=== PATIENT | female | born 1985 | race Two or more races ===

== ENCOUNTER 2019-08-06 19:01 | Emergency (ER) | payer OTHER ==
[~2019-08-06] VITALS: Ht 165.1 cm; Wt 52.2 kg
[2019-08-06 19:16] VITALS: BP 134/84
--- NOTE | 2019-08-06 19:27 | NUR ---
CALLED FOR COVID
== END 2019-08-06 19:46 | disposition home or self-care (01) ==
LOC: ER 19:07
DX: Z03.818 Encounter for observation for suspected exposure to other biological agents ruled out (principal)
CPT/HCPCS: 99283; U0003